=== PATIENT | female | born 1960 | race Hispanic/Latino ===

== ENCOUNTER 2022-11-02 17:18 | Emergency (ER) | payer SELFPAY ==
[2022-11-02 17:53] LABS: #Eosinphils 0.2 10x3/uL (0.0-0.5); #Monocytes 0.4 10x3/uL (0.0-1.1); #Neutrophils 3.9 10x3/uL (1.5-8.4); %Lymphocytes 29.3 % (18.0-47.0); %Monocytes 6.4 % (0.0-10.0); %Neutrophils 61.1 % (40.0-75.0); Hemoglobin 14.3 g/dL (12.0-15.5); Mean Corpuscular HGB CONC 34.6 g/dL (32.0-36.0); Mean Corpuscular Hemoglobin 30.4 pg (27.0-33.0); Mean Corpuscular Volume 87.9 fl (81.6-98.3); Mean Platelet Volume 9.5 fl (7.4-10.4); Platelet Count 335 10x3/uL (150-450); RBC Distribution Width 11.9 % (11.5-14.5); White Blood Cell (WBC) Count 6.4 10x3/uL (3.5-10.5)
[2022-11-02 17:59] LABS: ALT (SGPT) 39 U/L (8-55); Albumin 4.5 g/dL (3.4-4.8); Alkaline Phosphatase 201 U/L (40-110); Anion Gap 17 mmol/L (10-20); BUN (Urea Nitrogen) 11 mg/dL (9.8-20.1); Bilirubin, Total 0.3 mg/dL (0.2-1.2); Calc. Creatinine Clearance 0 mL/min (70-130); Calcium 9.5 mg/dL (7.8-10.44); Carbon Dioxide 22 mmol/L (23-31); Chloride 104 mmol/L (98-107); Estimated GFR 77; Glucose 96 mg/dL (80-115); Lipase 78 U/L (8-78); Potassium 4.3 mmol/L (3.5-5.1); Protein, Total 7.5 g/dL (5.8-8.1); Sodium 139 mmol/L (136-145)
[2022-11-02 18:07] LABS: AST (SGOT) 32 U/L (5-34)
[2022-11-02] MEDS ORDERED: Ketorolac Tromethamine 30 MG/ML VIAL ONE (21:07)
[2022-11-02] MEDS ORDERED: Diazepam 10 MG/2 ML SYRINGE ONE (21:08)
== END 2022-11-02 21:58 | disposition home or self-care (01) ==
LOC: CSHERS 17:18
DX: M54.12 Radiculopathy, cervical region (principal); E78.5 Hyperlipidemia, unspecified; I10 Essential (primary) hypertension; J45.909 Unspecified asthma, uncomplicated
CPT/HCPCS: 36415; 70450; 71045; 72125; 80053; 83690; 83880; 84484; 85025; 93005; 94760; 96372; J1885; J3360